=== PATIENT | female | born 1950 | race Hispanic/Latino ===

== ENCOUNTER → 2019-03-12 | Outpatient (CLI) | payer MEDICARE ==
[~2019-03-12] MED LIST: DIATRIZOATE MEGL/DIATRIZOA SOD 30 ML BTL PO ONE; IOPAMIDOL 370 MG/ML 200 ML INFUS..BTL INJ ONE; SODIUM CHLORIDE 0.9% 50ML 50 ML ONE
[2019-03-12 11:38] LABS: BLOOD UREA NITROGEN 18 mg/dL (7-26); BUN/CREATININE RATIO 23 (6-25); EST GLOMERULAR FILTRATION RATE > 60 ML/MIN (60-)
--- NOTE | 2019-03-12 12:45 | Diagnostic Imaging Report ---
EXAM: CT Abdomen and Pelvis WITH intravenous contrast INDICATION: Abdominal pain COMPARISON: None. TECHNIQUE: Abdomen and pelvis were scanned utilizing a multidetector helical scanner from the lung base to the pubic symphysis after administration of IV contrast. Coronal and sagittal reformations were obtained. Routine protocol was performed. Scan was performed during portal venous phase. IV CONTRAST: 100mL of Isovue 370 ORAL CONTRAST: Gastrografin RADIATION DOSE: Total DLP: 818.4 mGy*cm Dose modulation, iterative reconstruction, and/or weight based adjustment of the mA/kV was utilized to reduce the radiation dose to as low as reasonably achievable. FINDINGS: LOWER THORAX: Multiple right middle and lower lobe pulmonary nodules, most notably an 8 mm nodule on series 2 image 5. Bibasilar dependent subsegmental atelectasis. Coronary artery atherosclerotic calcifications. Bilateral calcified granulomas. HEPATOBILIARY: Scattered punctate calcified granulomas. No other focal liver lesion. No biliary ductal dilation. Small dependent gallstones. No CT evidence of cholecystitis. SPLEEN: Diffuse punctate calcified granulomas. No splenomegaly. PANCREAS: No focal masses or ductal dilatation. ADRENALS: No adrenal nodules. KIDNEYS/URETERS: 2 mm nonobstructive left lower pole renal calculus. No hydronephrosis. No solid renal mass lesions. PELVIC ORGANS/BLADDER: Status post hysterectomy. PERITONEUM / RETROPERITONEUM: No free air or fluid. LYMPH NODES: No lymphadenopathy. VESSELS: Unremarkable. GI TRACT: Extensive diverticulosis throughout the entire colon including the ascending and transverse colon. Mild bowel wall thickening along a loop of sigmoid colon without adjacent fat stranding, likely reflecting chronic inflammatory changes given history of prior diverticulitis. No bowel obstruction. Normal appendix. BONES AND SOFT TISSUES: No acute osseous injury. Degenerative changes of the visualized spine. No suspicious lytic or blastic lesions. IMPRESSION: Extensive diverticulosis throughout the entire colon including the ascending and transverse colon. Mild bowel wall thickening along the sigmoid colon without adjacent fat stranding, likely reflecting chronic inflammatory changes given history of prior diverticulitis. 2 mm nonobstructive left lower pole renal calculus. No hydronephrosis. Right middle and lower lobe pulmonary nodules measuring up to 8 mm. If the patient is high risk, recommend CT at 3-[address] at 18-24 months. If the patient is low risk, recommend CT at 3-[address] at 18-24 months. Signed by: Sylvia Antunez MD on 03/12/2019 12:42 PM
== END ==
LOC: CT 10:53
PROVIDERS: ATTEND Internal Medicine Gastroenterology
DX: R10.32 Left lower quadrant pain (principal); K62.5 Hemorrhage of anus and rectum; K57.92 Diverticulitis of intestine, part unspecified, without perforation or abscess without bleeding; Z71.3 Dietary counseling and surveillance; E66.01 Morbid (severe) obesity due to excess calories; Z87.891 Personal history of nicotine dependence
CPT/HCPCS: 36415; 74177; 82565; 84520; Q9967

== ENCOUNTER 2021-09-20 05:25 | Observation (INO) | payer MEDICARE ==
[~2021-09-20] VITALS: Ht 160 cm; Wt 112.9 kg
[~2021-09-20 05:25] MED LIST changes: -DIATRIZOATE MEGL/DIATRIZOA SOD 30 ML BTL PO ONE; +GLIPIZIDE ER5 MG PO; -IOPAMIDOL 370 MG/ML 200 ML INFUS..BTL INJ ONE; +LIPITOR10 MG PO; -SODIUM CHLORIDE 0.9% 50ML 50 ML ONE; +VIT D PO; +ZESTRIL10 MG PO
[2021-09-20] MEDS ORDERED: CELECOXIB 200 MG CAP ONE (06:11)
[2021-09-20] MEDS ORDERED: DEXAMETHASONE SOD PHOS 10 MG/1 ML VIAL ONE (06:11)
[2021-09-20] MEDS ORDERED: SODIUM CHLORIDE 0.9% 50ML 100 ML ONE (06:12)
[2021-09-20] MEDS ORDERED: GABAPENTIN 300 MG CAP ONE (06:12)
[2021-09-20] MEDS ORDERED: SODIUM CHLORIDE 0.9% 500ML 500 ML ONE (06:58)
[2021-09-20] MEDS ORDERED: Vancomycin IV 1,000 MG ONE (06:58)
[2021-09-20] MEDS ORDERED: TRANEXAMIC ACID 1,000 MG/10 ML ML ONE (06:59)
[2021-09-20] MEDS ORDERED: ROPIVACAINE 246.25 MG, EPINEPHRINE HCL 1:1000 1ML 0.5 MG, CLONIDINE HCL 0.08 MG, KETORO... INJ ONE ×5 (08:00)
[2021-09-20] MEDS ORDERED: DIPHENHYDRAMINE HCL INJ 50 MG/ML VIAL IV PRN (08:45)
[2021-09-20] MEDS ORDERED: HYDROCODONE/APAP 5MG-325MG TAB PO PRN (08:45)
[2021-09-20] MEDS ORDERED: DOCUSATE SODIUM 100 MG CAP PO PRN (08:45)
[2021-09-20] MEDS ORDERED: HYDROCODONE/APAP 7.5MG-325MG 1 EA TAB PO PRN (08:45)
[2021-09-20] MEDS ORDERED: KETOROLAC TROMETHAMINE 30 MG/ML VIAL IV PRN (08:45)
[2021-09-20] MEDS ORDERED: ONDANSETRON HCL INJ 2MG/ML 2ML 2 MG/ML VIAL IV PRN (08:45)
[2021-09-20] MEDS ORDERED: SODIUM CHLORIDE 0.9% 1000ML 1,000 ML IV SCH (08:45)
[2021-09-20] MEDS ORDERED: ACETAMINOPHEN 650 MG SUPP PR PRN (08:45)
[2021-09-20] MEDS: ASPIRIN 325 MG TAB PO SCH ×2 (09:00→17:00)
[2021-09-20] MEDS: CELECOXIB 100 MG CAP PO SCH ×2 (09:00→17:00)
[2021-09-20 09:40] VITALS: BP 104/63
[2021-09-20] MEDS ORDERED: FENTANYL CITRATE/PF 100MCG/2 ML INJ ONE (09:42)
[2021-09-20 10:54] VITALS: BP 118/62
[2021-09-20] MEDS ORDERED: HYDROCODONE/APAP 7.5MG-325MG 1 EA TAB ONE (11:07)
[2021-09-20] MEDS ORDERED: DEXTROSE 50% SYRINGE 50 ML IV PRN (12:00)
[2021-09-20 12:08] VITALS: BP 116/65
[2021-09-20] MEDS ORDERED: LISINOPRIL 20 MG TAB PO SCH (12:30)
[2021-09-20] MEDS: INSULIN LISPRO 100 UNIT/1 ML 3ML VIAL SQ SCH ×2 (13:15→16:30)
[2021-09-20] MEDS ORDERED: Cefazolin 1 GM in SODIUM CHLORIDE 0.9% 50ML 50 ML IV SCH (14:00)
[2021-09-20 16:57] VITALS: BP 152/79
[2021-09-20] MEDS ORDERED: ACETAMINOPHEN 1000 MG/100 ML IV PRN (18:00)
[2021-09-20] MEDS ORDERED: ENOXAPARIN SOD INJ 40 MG/0.4 ML SYR SC SCH (18:00)
[2021-09-20] MEDS ORDERED: ZOLPIDEM TARTRATE 5 MG TAB PO PRN (21:00)
[2021-09-20] MEDS ORDERED: ATORVASTATIN 20 MG TAB PO SCH (21:00)
[2021-09-21] MEDS ORDERED: GLIPIZIDE 5 MG TAB ER PO SCH (07:30)
== END 2021-09-20 19:04 | disposition home or self-care (01) ==
LOC: OR 05:25 → PACU V 08:38 → MED/SURG 11:46
PROVIDERS: ADMIT Specialist; ATTEND Specialist
DX: M17.0 Bilateral primary osteoarthritis of knee (principal); I10 Essential (primary) hypertension; E66.01 Morbid (severe) obesity due to excess calories; Z68.41 Body mass index [BMI] 40.0-44.9, adult; Z20.822 Contact with and (suspected) exposure to COVID-19; Z01.818 Encounter for other preprocedural examination
CPT/HCPCS: 27447; 36415; 71046; 73560; 82948; 86850; 86900; 86920; 94799; 97116; 97161; 97530; G0378; J0171; J0690; J1100; J1650; J1885; J2795; J3010; J3370; J7040; U0002